=== PATIENT | male | born 1955 | race Caucasian/White ===

== ENCOUNTER → 2016-06-28 | Outpatient (CLI) | payer BC, OTHER ==
[~2016-06-28] MED LIST: /THIA10TA; ACET500C; AMLO5TAB2 PO; ASPI325T; ATEN25TA; ATOR1TAB18 PO; BAYE325T12 PO; CALC500C16 PO; CARV12.5 PO; CENT1TAB PO; FAMO20TA PO; FISH1000; FOLI1TAB; FOLI1TAB2 PO; LIPI20TA PO; LIPI80TA; LISI40TAB PO; LISI5TAB; MULTIVIT; NITR4TASL SL; OMEP40CA2 PO; OXAZ10CA PO; POTA20TA4 PO; PRIL20CA; SUCR1TA PO; Thiamine Hcl PO; serax PO
[2016-06-28 10:18] LABS: ALBUMIN 3.8 GM/DL (3.2-5.2); ALBUMIN/GLOBULIN RATIO 0.93 (1.00-1.93); ALKALINE PHOSPHATASE 118 U/L (45-117); ALT/SGPT 83 U/L (12-78); ANION GAP 13 MEQ/L (8-16); AST/SGOT 110 U/L (15-37); BILIRUBIN,TOTAL 0.7 MG/DL (0.2-1.0); BLOOD UREA NITROGEN 11 MG/DL (7-18); CALCIUM LEVEL 8.3 MG/DL (8.8-10.2); CARBON DIOXIDE LEVEL 24 MEQ/L (21-32); CHLORIDE LEVEL 103 MEQ/L (98-107); CHOLESTEROL LEVEL 205 MG/DL (<200); CREATININE FOR GFR 0.82 MG/DL (0.70-1.30); GLOMERULAR FILTRATION RATE > 60.0 (>49); GLUCOSE, FASTING 90 MG/DL (80-110); POTASSIUM SERUM 4.2 MEQ/L (3.5-5.1); SODIUM LEVEL 140 MEQ/L (136-145); TOTAL PROTEIN 7.9 GM/DL (6.4-8.2); TRIGLYCERIDES LEVEL 65 MG/DL (<150)
== END ==
LOC: M LAB 07:24
PROVIDERS: ATTEND Physician Assistant
DX: E78.00 Pure hypercholesterolemia, unspecified (principal); I25.10 Atherosclerotic heart disease of native coronary artery without angina pectoris; I25.5 Ischemic cardiomyopathy

== ENCOUNTER → 2016-08-06 | Outpatient (CLI) | payer BC, OTHER ==
[2016-08-06 07:50] LABS: ALBUMIN 3.5 GM/DL (3.2-5.2); ALBUMIN/GLOBULIN RATIO 0.85 (1.00-1.93); ALKALINE PHOSPHATASE 167 U/L (45-117); ALT/SGPT 123 U/L (12-78); ANION GAP 12 MEQ/L (8-16); AST/SGOT 155 U/L (15-37); BILIRUBIN,TOTAL 0.5 MG/DL (0.2-1.0); BLOOD UREA NITROGEN 10 MG/DL (7-18); CALCIUM LEVEL 8.6 MG/DL (8.8-10.2); CARBON DIOXIDE LEVEL 32 MEQ/L (21-32); CHLORIDE LEVEL 88 MEQ/L (98-107); CREATININE FOR GFR 0.95 MG/DL (0.70-1.30); GLOMERULAR FILTRATION RATE > 60.0 (>49); GLUCOSE, FASTING 119 MG/DL (80-110); MAGNESIUM LEVEL 1.9 MG/DL (1.8-2.4); POTASSIUM SERUM 3.3 MEQ/L (3.5-5.1); SODIUM LEVEL 132 MEQ/L (136-145); TOTAL PROTEIN 7.6 GM/DL (6.4-8.2)
== END ==
LOC: M LAB 06:46
PROVIDERS: ATTEND Physician Assistant
DX: I25.5 Ischemic cardiomyopathy (principal); E78.00 Pure hypercholesterolemia, unspecified

== ENCOUNTER → 2016-09-21 | Outpatient (CLI) | payer BC, OTHER ==
[2016-09-21 08:02] LABS: ALBUMIN 3.7 GM/DL (3.2-5.2); ALBUMIN/GLOBULIN RATIO 0.86 (1.00-1.93); ALKALINE PHOSPHATASE 122 U/L (45-117); ALT/SGPT 63 U/L (12-78); ANION GAP 7 MEQ/L (8-16); AST/SGOT 78 U/L (15-37); BILIRUBIN,TOTAL 0.7 MG/DL (0.2-1.0); BLOOD UREA NITROGEN 8 MG/DL (7-18); CALCIUM LEVEL 8.5 MG/DL (8.8-10.2); CARBON DIOXIDE LEVEL 29 MEQ/L (21-32); CHLORIDE LEVEL 98 MEQ/L (98-107); CREATININE FOR GFR 0.85 MG/DL (0.70-1.30); GLOMERULAR FILTRATION RATE > 60.0 (>49); GLUCOSE, FASTING 111 MG/DL (80-110); MAGNESIUM LEVEL 1.6 MG/DL (1.8-2.4); POTASSIUM SERUM 4.4 MEQ/L (3.5-5.1); SODIUM LEVEL 134 MEQ/L (136-145)
== END ==
LOC: M LAB 07:09
PROVIDERS: ATTEND Physician Assistant
DX: I25.5 Ischemic cardiomyopathy (principal); E78.00 Pure hypercholesterolemia, unspecified

== ENCOUNTER → 2017-02-23 | Outpatient (CLI) | payer BC, OTHER ==
[~2017-02-23] MED LIST changes: -ATOR1TAB18 PO; +ATOR80TA59 PO; -FOLI1TAB2 PO; +FOLI1TAB4 PO; -OXAZ10CA PO; +OXAZ10CA3 PO
[2017-02-23 14:13] LABS: BASO # 0.1 K/mm3 (0.0-0.2); BASO % 1.1 % (0.0-1.0); EOS # 0.3 K/mm3 (0.0-0.50); EOS % 4.3 % (0.0-3.0); LARGE UNSTAINED CELL # 0.2 K/mm3 (0.0-0.4); LARGE UNSTAINED CELL % 2.4 % (0.0-4.0); LYMPH # 1.6 K/mm3 (1.5-4.5); MEAN CORPUSCULAR HEMOGLOBIN 34.6 pg (27.0-33.0); MEAN CORPUSCULAR HGB CONC 34.3 g/dl (32.0-36.5); MONO # 0.4 K/mm3 (0.0-0.8); MONO % 5.8 % (0.0-5.0); NEUTROPHILS # 3.7 K/mm3 (1.8-7.7); NEUTROPHILS % 60.4 % (36.0-66.0); PLATELET COUNT, AUTOMATED 195 k/mm3 (150-450); RED CELL DISTRIBUTION WIDTH 12.1 % (11.5-14.5); WHITE BLOOD COUNT 6.1 K/mm3 (4.0-10.0)
[2017-02-23 15:47] LABS: ALBUMIN 3.4 GM/DL (3.2-5.2); ALBUMIN/GLOBULIN RATIO 0.83 (1.00-1.93); ALKALINE PHOSPHATASE 100 U/L (45-117); ALT/SGPT 32 U/L (12-78); ANION GAP 8 MEQ/L (8-16); AST/SGOT 39 U/L (15-37); BILIRUBIN,TOTAL 0.8 MG/DL (0.2-1.0); BLOOD UREA NITROGEN 15 MG/DL (7-18); CALCIUM LEVEL 8.9 MG/DL (8.8-10.2); CARBON DIOXIDE LEVEL 27 MEQ/L (21-32); CHLORIDE LEVEL 104 MEQ/L (98-107); CHOLESTEROL LEVEL 185 MG/DL (<200); CREATININE FOR GFR 0.78 MG/DL (0.70-1.30); GLOMERULAR FILTRATION RATE > 60.0 (>49); GLUCOSE, FASTING 96 MG/DL (80-110); POTASSIUM SERUM 4.1 MEQ/L (3.5-5.1); SODIUM LEVEL 139 MEQ/L (136-145); TOTAL PROTEIN 7.5 GM/DL (6.4-8.2); TRIGLYCERIDES LEVEL 82 MG/DL (<150)
[2017-02-24 14:25] LABS: PSA TOTAL 0.7 ng/mL (0.0-4.0)
== END ==
LOC: M LAB 13:23
PROVIDERS: ATTEND Nurse Practitioner Family
DX: I11.9 Hypertensive heart disease without heart failure (principal); Z12.5 Encounter for screening for malignant neoplasm of prostate; E56.9 Vitamin deficiency, unspecified; E78.5 Hyperlipidemia, unspecified

== ENCOUNTER → 2018-01-12 | Outpatient (CLI) | payer BC, OTHER | LOC: M RAD 13:48 | DX: M25.521 Pain in right elbow (principal) | CPT/HCPCS: 76882 ==

== ENCOUNTER → 2018-12-14 | Outpatient (CLI) | payer MEDICARE, OTHER ==
[~2018-12-14] MED LIST changes: -AMLO5TAB2 PO; +AMLO5TAB6 PO; +FOLI1TAB11 PO; -FOLI1TAB4 PO; +LISI40TA52 PO; -LISI40TAB PO
[2018-12-14 08:03] LABS: BLOOD UREA NITROGEN 22 MG/DL (7-18); CALCIUM LEVEL 8.3 MG/DL (8.8-10.2); CARBON DIOXIDE LEVEL 24 MEQ/L (21-32); CHLORIDE LEVEL 107 MEQ/L (98-107); CREATININE FOR GFR 1.06 MG/DL (0.70-1.30); GLOMERULAR FILTRATION RATE > 60.0 (>49); GLUCOSE, FASTING 118 MG/DL (70-100); MAGNESIUM LEVEL 2.1 MG/DL (1.8-2.4); POTASSIUM SERUM 4.2 MEQ/L (3.5-5.1); SODIUM LEVEL 139 MEQ/L (136-145)
== END ==
LOC: M LAB 07:12
PROVIDERS: ATTEND Physician Assistant
DX: I25.5 Ischemic cardiomyopathy (principal)

== ENCOUNTER → 2019-11-12 | Outpatient (CLI) | payer MEDICARE, BC, OTHER ==
[~2019-11-12] MED LIST changes: -OMEP40CA2 PO; +OMEP40CA97 PO
--- NOTE | 2019-11-12 21:31 | REP ---
Upper GI air contrast The procedure was performed under the direct supervision of Dr. Dawn. The images were reviewed with Dr. Dawn The chemist organic film shows no organomegaly or pathological masses. The intestinal gas pattern is non-specific. Liquid barium and gas producing crystals were given in the erect position as well as liquid barium in the prone oblique position in order to perform a double contrast upper GI examination. The oral and pharyngeal stages of deglutition are unremarkable. Esophageal transport is prompt and efficient and there is no esophagitis, stricture, mucosal ring or hiatal hernia. There is gastroesophageal reflux demonstrated to the level of the thoracic inlet. The stomach kaur are normally outlined . The rugal folds are smooth and regular. There is no gastritis neoplasm or ulcer disease. The duodenal kaur are normally outlined . The mucosal folds are smooth and regular. There is no duodenitis pancreatitis peptic ulcer disease or neoplasm. The visualized portion of the proximal small bowel appears normal in course and caliber. Impression: There is gastroesophageal reflux demonstrated to the level of the thoracic inlet. Otherwise, unremarkable double contrast upper GI examination. 1 minute of fluoro time was utilized for this procedure. Electronically Signed by JERICHO Hester 11/12/2019 03:59 P Electronically Signed by Tc Dawn MD 11/12/2019 09:23 P
== END ==
LOC: M LAB 12:43
PROVIDERS: ATTEND Physician Assistant Medical
DX: J02.9 Acute pharyngitis, unspecified (principal); R13.10 Dysphagia, unspecified; K21.9 Gastro-esophageal reflux disease without esophagitis

== ENCOUNTER 2020-10-05 15:04 | Emergency (ER) | payer MEDICARE, BC, OTHER ==
[~2020-10-05] VITALS: Ht 177.8 cm; Wt 86.4 kg
[~2020-10-05 15:04] MED LIST changes: +AMLO1TAB24 PO; -AMLO5TAB6 PO
[2020-10-05] MEDS ORDERED: ASPIRIN 81 MG CHEW TABLET PO ONE (15:40)
[2020-10-05] MEDS ORDERED: GI COCKTAIL 50ML BTL(HYOSCYAMINE/MAALOX/LIDOCAINE VISCOUS)(1:3:1) PO ONE ×2 (15:40→21:45)
[2020-10-05 16:11] LABS: BASO # 0.1 10^3/uL (0.0-0.2); BASO % 0.6 % (0.0-1.0); EOS # 0.1 10^3/uL (0.0-0.5); EOS % 1.6 % (0.0-3.0); HEMATOCRIT 44.7 % (42.0-52.0); HEMOGLOBIN 15.1 g/dl (13.5-17.5); LYMPH # 2.1 10^3/uL (1.5-5.0); LYMPH % 25.1 % (24.0-44.0); MEAN CORPUSCULAR HEMOGLOBIN 29.2 pg (27.0-33.0); MEAN CORPUSCULAR HGB CONC 33.8 g/dl (32.0-36.5); MEAN CORPUSCULAR VOLUME 86.5 fl (80.0-96.0); MONO # 0.7 10^3/uL (0.0-0.8); MONO % 7.9 % (2.0-8.0); NEUTROPHILS # 5.4 10^3/uL (1.5-8.5); NEUTROPHILS % 64.4 % (36.0-66.0); PLATELET COUNT, AUTOMATED 174 10^3/uL (150-450); RED BLOOD COUNT 5.17 10^6/uL (4.30-6.10); WHITE BLOOD COUNT 8.4 10^3/uL (4.0-10.0)
[2020-10-05] MEDS ORDERED: ISOVUE-370 76% 100ML VIAL As Ordered ONE (16:29)
[2020-10-05 16:33] LABS: ALBUMIN 4.2 GM/DL (3.2-5.2); BILIRUBIN,DIRECT 0.1 MG/DL (0.0-0.2); BILIRUBIN,TOTAL 0.5 MG/DL (0.2-1.0); FREE T4 1.03 NG/DL (0.76-1.46); INR 0.97; PROTHROMBIN TIME 13.1 SECONDS (12.5-14.3); THYROID STIMULATING HORMONE 1.55 uIU/ML (0.358-3.740); TOTAL PROTEIN 7.7 GM/DL (6.4-8.2)
[2020-10-05 16:34] LABS: PARTIAL THROMBOPLASTIN TIME 39.5 SECONDS (24.2-38.5)
--- NOTE | 2020-10-05 16:46 | REP ---
INDICATION: CHEST PAIN COMPARISON: 01/22/2016 TECHNIQUE: Portable AP view of the chest FINDINGS: The mediastinum and cardiac silhouette are stable and within normal limits for portable technique. The lung marie demonstrate stable chronic interstitial changes without acute consolidation, effusion, or pneumothorax. Skeletal structures are intact. IMPRESSION: Chronic stable changes. No focal consolidation or effusion appreciated. <Electronically signed by Lux Zaidi > 10/05/20 [id number]
--- NOTE | 2020-10-05 16:50 | REP ---
INDICATION: chest/midepig pain; hx esoph and gastric perf COMPARISON: 03/21/2014 TECHNIQUE: Axial contrast enhanced images from the thoracic inlet to the upper abdomen using pulmonary embolus technique with multiplanar re-formations. 100 ml Isovue 370 intravenous contrast material administered without complication. This CT examination was performed using the following dose reduction techniques: Automated exposure control, adjustment of mA and/or kv according to the patient's size, and use of iterative reconstruction technique. FINDINGS: Satisfactory enhancement of the pulmonary vasculature is achieved and no filling defects are identified to suggest pulmonary embolus. The lung marie demonstrate minimal posterior basilar dependent changes and chronic pleuroparenchymal changes along the anterior margin of the left upper lobe/lingula. No acute consolidation. No effusion. No pneumothorax. Tracheobronchial tree is patent. Mediastinum demonstrates atherosclerotic changes to the thoracic aorta and coronary arteries without aortic aneurysm. No pericardial effusion. 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 Surrounding musculoskeletal structures are intact. IMPRESSION: No evidence for pulmonary embolus. No acute mediastinal or pleural parenchymal process. Chronic stable changes as compared with 03/21/2014. <Electronically signed by Lux Zaidi > 10/05/20 [id number]
--- NOTE | 2020-10-05 16:54 | REP ---
INDICATION: chest/midepig pain; hx esoph and gastric perf. COMPARISON: 08/24/2015 TECHNIQUE: Axial contrast-enhanced images from the lung bases to the pubic symphysis using 100 cc Isovue 370 intravenous contrast material. Coronal and sagittal reformations obtained. This CT examination was performed using the following dose reduction techniques: Automated exposure control, adjustment of mA and/or kv according to the patient's size, and the use of iterative reconstruction technique. FINDINGS: Liver demonstrates fatty infiltration without focal hepatic lesion. Spleen, pancreas, gallbladder, bilateral adrenal glands and kidneys are essentially normal. The enteric system is without acute obstruction or inflammatory process. Moderate fecal stasis noted. Scattered sigmoid diverticula identified without acute diverticulitis.. Pelvis demonstrates normal bladder and age-appropriate prostate/seminal vesicles. No ascites. No free air. No intraperitoneal or retroperitoneal adenopathy. Abdominal aorta and vasculature appear normal. Musculoskeletal structures are intact and without acute osseous abnormality. IMPRESSION: No acute abdominopelvic pathology appreciated. Hepatosteatosis. Sigmoid diverticula without acute diverticulitis. <Electronically signed by Lux Zaidi > 10/05/20 [id number]
[2020-10-05] MEDS ORDERED: PROTPAK PO (18:54)
[2020-10-05] MEDS ORDERED: CARA1TAB6 PO (18:55)
--- NOTE | 2020-10-05 19:49 | ECGEPIP ---
[facility] - ED Test Date: 2020-10-05 Pat Name: ROSE MARY PRESSLEY Department: Room: - Gender: Male Security Analyst: TYREE : 1955 Requested By: Kendrick Jones Order Number: [id number] Reading MD: Kendrick Jones Measurements Intervals [place] Rate: 89 P: 45 [place]: 198 QRS: -28 QRSD: 98 T: 136 QT: 348 QTc: 423 Interpretive Statements Normal sinus rhythm Anteroseptal infarct , age undetermined ST & T wave abnormality, consider lateral ischemia LEFT VENTRICULAR HYPERTROPHY and ST-T change cw 01/22/16 - rate increased lateral st t wave changes - rule out ischemia CLINICAL CORRELATION ADVISED Electronically Signed on 10-05-2020 19:49:09 EDT by Kendrick Jones
[2020-10-05 21:30] VITALS: BP 124/79
--- NOTE | 2020-10-06 06:18 | ECGEPIP ---
[facility] - ED Test Date: 2020-10-05 Pat Name: ROSE MARY PRESSLEY Department: Room: - Gender: Male Chemical Research Engineer: CHRISTIAN : 1955 Requested By: Kendrick Jones Order Number: [id number] Reading MD: Kendrick Jones Measurements Intervals [place] Rate: 73 P: 27 [place]: 200 QRS: -29 QRSD: 98 T: 97 QT: 392 QTc: 431 Interpretive Statements Normal sinus rhythm Anteroseptal infarct , age undetermined ST T wave abnormality, consider lateral ischemia LAD LEFT VENTRICULAR HYPERTROPHY and ST-T change cw 10/05/[address] T wave changes similar morpholoy Electronically Signed on 10-06-2020 6:18:24 EDT by Kendrick Jones
== END 2020-10-05 21:59 | disposition home or self-care (01) ==
LOC: M ED 15:04
DX: R07.9 Chest pain, unspecified (principal); K29.70 Gastritis, unspecified, without bleeding; I25.10 Atherosclerotic heart disease of native coronary artery without angina pectoris; I25.2 Old myocardial infarction; I10 Essential (primary) hypertension; E78.5 Hyperlipidemia, unspecified; Z98.61 Coronary angioplasty status; Z95.810 Presence of automatic (implantable) cardiac defibrillator; Z87.891 Personal history of nicotine dependence; Z82.49 Family history of ischemic heart disease and other diseases of the circulatory system; Z79.899 Other long term (current) drug therapy; Z88.1 Allergy status to other antibiotic agents
CPT/HCPCS: 71045; 71275; 74177; 80047; 80076; 83690; 83880; 84439; 84443; 84484; 85025; 85610; 85730; 93005; 93041; 94760; 99285; Q9967

== ENCOUNTER → 2021-03-05 | Outpatient (CLI) | payer MEDICARE, BC, OTHER ==
[~2021-03-05] MED LIST changes: +CARA1TAB6 PO; +OMEP40CA4 PO; -OMEP40CA97 PO; +PROTPAK PO
--- NOTE | 2021-03-05 09:17 | REP ---
INDICATION: AAA SCREENING COMPARISON: None. TECHNIQUE: Multiple ultrasonographic images of the abdominal aorta were obtained from the level of the celiac access to the aortoiliac bifurcation and the longitudinal and transverse scan planes along with color Doppler imaging. FINDINGS: The maximal AP dimension of the abdominal aorta as measured in the longitudinal scan plane is 2.4 cm. There is no evidence of common iliac arterial ectasia. IMPRESSION: No evidence of abdominal aortic aneurysm. <Electronically signed by Андрей Mims > 03/05/21 [id number]
== END ==
LOC: M RAD 07:36
PROVIDERS: ATTEND Internal Medicine
DX: Z13.6 Encounter for screening for cardiovascular disorders (principal); F17.201 Nicotine dependence, unspecified, in remission

== ENCOUNTER → 2021-07-03 | Outpatient (CLI) | payer MEDICARE, BC, OTHER ==
[~2021-07-03] MED LIST changes: +ASPI81TA26 PO; +ENTR1TAB PO; +METO1TAB7 PO; +ROSU20TA5 PO
== END ==
LOC: M LABSMTC 09:17
PROVIDERS: ATTEND Anesthesiology
DX: Z01.812 Encounter for preprocedural laboratory examination (principal); Z20.822 Contact with and (suspected) exposure to COVID-19

== ENCOUNTER 2021-07-08 08:38 | Day surgery (SDC) | payer MEDICARE, BC, OTHER ==
[~2021-07-08] VITALS: Ht 177.8 cm; Wt 83.0 kg
[~2021-07-08 08:38] MED LIST changes: +NS 1,000 ML IV SCH
[2021-07-08] MEDS ORDERED: LIDOCAINE 2% 100MG/5ML SDV (FOR ANES.) As Ordered ONE (08:55)
[2021-07-08] MEDS ORDERED: propofoL 500 MG/50 ML VIAL As Ordered ONE (08:56)
[2021-07-08] MEDS ORDERED: fentaNYL 100 MCG/2 ML INJECTION As Ordered ONE (08:56)
[2021-07-08] MEDS ORDERED: ePHEDrine SULFATE 25 MG/5 ML(5MG/ML) SYRINGE As Ordered ONE (10:10)
[2021-07-08] MEDS ORDERED: PHENYLephrine 500MCG 5ML (100MCG/ML) SYRINGE As Ordered ONE (10:17)
[2021-07-08 10:55] VITALS: BP 113/64
== END 2021-07-08 11:01 | disposition home or self-care (01) ==
LOC: M OPP 08:38
PROVIDERS: ATTEND Internal Medicine Gastroenterology
DX: Z12.11 Encounter for screening for malignant neoplasm of colon (principal); D12.6 Benign neoplasm of colon, unspecified; K63.3 Ulcer of intestine; K57.30 Diverticulosis of large intestine without perforation or abscess without bleeding; K64.0 First degree hemorrhoids; K29.60 Other gastritis without bleeding; K20.90 Esophagitis, unspecified without bleeding; K44.9 Diaphragmatic hernia without obstruction or gangrene; I50.9 Heart failure, unspecified; Z79.82 Long term (current) use of aspirin; Z79.899 Other long term (current) drug therapy; Z87.891 Personal history of nicotine dependence
CPT/HCPCS: 43239; 45380; 45385; 88305; J2370; J3010

== ENCOUNTER 2021-07-15 20:20 | Emergency (ER) | payer MEDICARE, BC, OTHER ==
[~2021-07-15] VITALS: Ht 177.8 cm; Wt 83.2 kg
[~2021-07-15 20:20] MED LIST changes: -NS 1,000 ML IV SCH
[2021-07-15 21:23] LABS: BASO # 0.1 10^3/uL (0.0-0.2); BASO % 0.4 % (0.0-1.0); EOS # 0.2 10^3/uL (0.0-0.5); EOS % 1.7 % (0.0-3.0); HEMATOCRIT 43.1 % (42.0-52.0); HEMOGLOBIN 14.6 g/dl (13.5-17.5); LYMPH # 1.8 10^3/uL (1.5-5.0); LYMPH % 14.7 % (24.0-44.0); MEAN CORPUSCULAR HEMOGLOBIN 29.4 pg (27.0-33.0); MEAN CORPUSCULAR HGB CONC 33.9 g/dl (32.0-36.5); MEAN CORPUSCULAR VOLUME 86.9 fl (80.0-96.0); MONO # 0.9 10^3/uL (0.0-0.8); MONO % 7.8 % (2.0-8.0); NEUTROPHILS % 75.1 % (36.0-66.0); PLATELET COUNT, AUTOMATED 167 10^3/uL (150-450); RED BLOOD COUNT 4.96 10^6/uL (4.30-6.10); WHITE BLOOD COUNT 11.9 10^3/uL (4.0-10.0)
[2021-07-15 21:56] LABS: CK-MB VALUE MASS 1.4 NG/ML (<3.6); MB/CK RELATIVE INDEX 1.73 (< OR =4)
[2021-07-15 21:58] LABS: ALBUMIN 3.8 GM/DL (3.2-5.2); BILIRUBIN,TOTAL 0.5 MG/DL (0.2-1.0); CALCIUM LEVEL 8.6 MG/DL (8.8-10.2); CREATININE FOR GFR 1.36 MG/DL (0.70-1.30); GLOMERULAR FILTRATION RATE 55.6 (>49); POTASSIUM SERUM 4.6 MEQ/L (3.5-5.1); TOTAL PROTEIN 7.6 GM/DL (6.4-8.2)
[2021-07-15] MEDS ORDERED: NS 1,000 ML IV ONE (23:10)
[2021-07-16 01:00] VITALS: BP 120/68
== END 2021-07-16 01:11 | disposition home or self-care (01) ==
LOC: M ED 20:20
DX: K52.9 Noninfective gastroenteritis and colitis, unspecified (principal); R55 Syncope and collapse; I44.0 Atrioventricular block, first degree; I45.19 Other right bundle-branch block; I25.2 Old myocardial infarction; I10 Essential (primary) hypertension; K21.9 Gastro-esophageal reflux disease without esophagitis; E78.5 Hyperlipidemia, unspecified; Z95.1 Presence of aortocoronary bypass graft; Z95.0 Presence of cardiac pacemaker; Z95.810 Presence of automatic (implantable) cardiac defibrillator; Z79.82 Long term (current) use of aspirin; Z79.899 Other long term (current) drug therapy; Z91.040 Latex allergy status

== ENCOUNTER 2023-01-30 10:27 | Inpatient (IN) | payer MEDICARE, BC, OTHER ==
[~2023-01-30] VITALS: Ht 177.8 cm; Wt 80.0 kg
[~2023-01-30 10:27] MED LIST changes: -ROSU20TA5 PO; +ROSU20TA61 PO
[2023-01-30] MEDS ORDERED: METO200T28 PO (11:08)
[2023-01-30] MEDS ORDERED: NS 1,000 ML IV ONE (11:25)
[2023-01-30 11:29] LABS: VENOUS BASE EXCESS -3.3 (-2.0-2.0); VENOUS HCO3 22.9 MMOL/L (23.0-27.0); VENOUS O2 SATURATION 46.9 % (60.0-80.0); VENOUS PARTIAL PRESSURE CO2 45.3 mmHg (38.0-50.0); VENOUS PH 7.321 UNITS (7.330-7.430); VENOUS STANDARD HCO3 20.7 MMOL/L; VENOUS TOTAL CO2 24.3 MMOL/L (24.0-28.0)
[2023-01-30 11:35] LABS: BASO % 0.3 % (0.0-1.0); EOS # 0.1 10^3/uL (0.0-0.5); LYMPH % 15.9 % (24.0-44.0); MEAN CORPUSCULAR HGB CONC 32.4 g/dl (32.0-36.5); MEAN CORPUSCULAR VOLUME 89.4 fl (80.0-96.0); MONO # 0.5 10^3/uL (0.0-0.8); MONO % 8.8 % (2.0-8.0); NEUTROPHILS # 4.5 10^3/uL (1.5-8.5); NEUTROPHILS % 73.8 % (36.0-66.0); PLATELET COUNT, AUTOMATED 111 10^3/uL (150-450); RED BLOOD COUNT 4.14 10^6/uL (4.30-6.10)
[2023-01-30 11:44] LABS: INR 1.09; PROTHROMBIN TIME 13.8 SECONDS (12.5-14.5)
[2023-01-30 11:54] LABS: ETHYL ALCOHOL (ETHANOL) < 0.003 % (0.000-0.010)
[2023-01-30] MEDS ORDERED: ACETAMINOPHEN TAB 650MG DOSE (2X325MG) PO ONE (11:55)
[2023-01-30 11:56] LABS: BLOOD UREA NITROGEN 18 MG/DL (9-23); CALCIUM LEVEL 7.5 MG/DL (8.3-10.6); CARBON DIOXIDE LEVEL 24 MMOL/L (20-31); CHLORIDE LEVEL 107 MMOL/L (98-107); CK-MB VALUE MASS < 1.0 NG/ML (<3.6); CPK CREATINE PHOSPHOKINASE 48 U/L (46-171); CREATININE FOR GFR 1.15 MG/DL (0.70-1.30); GLOMERULAR FILTRATION RATE > 60.0 (>49); GLUCOSE, FASTING 116 MG/DL (74-106); MAGNESIUM LEVEL 1.5 MG/DL (1.8-2.4); MB/CK RELATIVE INDEX 2.08 (< OR =4); POTASSIUM SERUM 4.1 MMOL/L (3.5-5.1); SODIUM LEVEL 139 MMOL/L (136-145)
[2023-01-30 11:58] LABS: THYROID STIMULATING HORMONE 2.088 uIU/ML (0.55-4.78)
[2023-01-30 11:59] LABS: FREE T4 1.13 NG/DL (0.89-1.76)
[2023-01-30 12:01] LABS: RSV AMPLIFICATION NEGATIVE (NEGATIVE)
[2023-01-30 12:32] LABS: CK-MB VALUE MASS < 1.0 NG/ML (<3.6)
[2023-01-30 12:46] LABS: PROCALCITONIN 0.07 ng/ml
[2023-01-30 12:48] LABS: CPK CREATINE PHOSPHOKINASE 46 U/L (46-171); MB/CK RELATIVE INDEX 2.17 (< OR =4)
[2023-01-30] MEDS ORDERED: MED REC IN PROGRESS XX SCH (14:00)
[2023-01-30] MEDS ORDERED: MELA3TAB70 PO (14:23)
[2023-01-30] MEDS ORDERED: CORICAP PO (14:23)
[2023-01-30] MEDS ORDERED: LEXA1TAB PO (14:23)
[2023-01-30] MEDS ORDERED: HOME MED LIST COMPLETE! XX SCH (14:35)
[2023-01-30] MEDS ORDERED: NITROGLYCERIN 0.4MG SUBL TABLET SL PRN (14:35)
[2023-01-30] MEDS ORDERED: METO1TAB7 PO (14:57)
[2023-01-30] MEDS ORDERED: PROT1TAB2 PO (14:57)
[2023-01-30] MEDS ORDERED: REMDESIVIR 200 MG in NS 250 ML IV ONE (17:00)
[2023-01-30] MEDS: COMBIVENT RESPIMAT 100-20MCG INHALER 4GM INH SCH ×2 (18:01→19:42)
[2023-01-30 20:40] VITALS: BP 142/79; TEMP 98.3; O2SAT 91
[2023-01-30] MEDS: ENOXAPARIN 40MG/0.4ML SYRINGE (J1650 PER 10MG) SC SCH (21:50)
[2023-01-30] MEDS: ENTRESTO 24-26MG TABLET (SACUBITRIL/VALSARTAN) PO SCH (21:50)
[2023-01-30] MEDS: guaiFENesin ER 600 MG TAB PO SCH (21:51)
[2023-01-30] MEDS: ROSUVASTATIN 10 MG TAB (CRESTOR) PO SCH (21:51)
[2023-01-30] MEDS: SUCRALFATE 1 GM TAB PO SCH (21:56)
[2023-01-30] MEDS ORDERED: RAMELTEON 8 MG TAB (ROZEREM) PO PRN (22:55)
[2023-01-30] MEDS: ACETAMINOPHEN TAB 650MG DOSE (2X325MG) PO PRN (23:35)
[2023-01-31] MEDS: COMBIVENT RESPIMAT 100-20MCG INHALER 4GM INH SCH ×7 (00:47→23:48)
[2023-01-31 05:21] VITALS: BP 100/62; TEMP 98.2; O2SAT 92
[2023-01-31 05:23] VITALS: BP_SYST 100; BP_SYST 78; BP_SYST 94; BP_DIAS 49; BP_DIAS 60; BP_DIAS 62
[2023-01-31 06:27] LABS: BASO % 0.4 % (0.0-1.0); EOS % 0.4 % (0.0-3.0); HEMATOCRIT 35.4 % (42.0-52.0); HEMOGLOBIN 11.7 g/dl (13.5-17.5); LYMPH # 1.5 10^3/uL (1.5-5.0); LYMPH % 30.2 % (24.0-44.0); MEAN CORPUSCULAR HEMOGLOBIN 29.1 pg (27.0-33.0); MEAN CORPUSCULAR HGB CONC 33.1 g/dl (32.0-36.5); MEAN CORPUSCULAR VOLUME 88.1 fl (80.0-96.0); MONO # 0.5 10^3/uL (0.0-0.8); MONO % 9.8 % (2.0-8.0); NEUTROPHILS # 2.9 10^3/uL (1.5-8.5); NEUTROPHILS % 58.8 % (36.0-66.0); PLATELET COUNT, AUTOMATED 114 10^3/uL (150-450); RED BLOOD COUNT 4.02 10^6/uL (4.30-6.10); WHITE BLOOD COUNT 4.9 10^3/uL (4.0-10.0)
[2023-01-31 06:38] LABS: LDH LACTATE DEHYDROGENASE 147 U/L (120-246)
[2023-01-31 06:39] LABS: ALBUMIN 2.8 G/DL (3.2-5.2); ALKALINE PHOSPHATASE 56 U/L (46-116); ALT/SGPT 16 U/L (7.0-40); AST/SGOT 17 U/L (<34); BILIRUBIN,DIRECT 0.2 MG/DL (<0.4); BILIRUBIN,TOTAL 0.3 MG/DL (0.3-1.2); BLOOD UREA NITROGEN 15 MG/DL (9-23); CALCIUM LEVEL 7.5 MG/DL (8.3-10.6); CARBON DIOXIDE LEVEL 21 MMOL/L (20-31); CHLORIDE LEVEL 108 MMOL/L (98-107); CREATININE FOR GFR 0.99 MG/DL (0.70-1.30); GLOMERULAR FILTRATION RATE > 60.0 (>49); GLUCOSE, FASTING 92 MG/DL (74-106); MAGNESIUM LEVEL 1.5 MG/DL (1.8-2.4); POTASSIUM SERUM 3.9 MMOL/L (3.5-5.1); SODIUM LEVEL 137 MMOL/L (136-145); TOTAL PROTEIN 5.6 G/DL (5.7-8.2)
[2023-01-31 06:40] LABS: INR 1.21
[2023-01-31 06:41] LABS: FERRITIN 217.6 NG/ML (10.5-307.3)
[2023-01-31 06:41] LABS: PARTIAL THROMBOPLASTIN TIME 43.4 SECONDS (24.8-34.2)
[2023-01-31 06:44] LABS: D-DIMER QUANT 0.44 ug/mL (<0.5); ERYTHROCYTE SEDIMENTATION RATE 13 mm/hr (0-20)
[2023-01-31 07:20] VITALS: O2SAT 97
[2023-01-31] MEDS ORDERED: METOPROLOL SUCC *XL* 25MG TAB (TopROL *XL*) PO SCH (09:00)
[2023-01-31] MEDS: ENTRESTO 24-26MG TABLET (SACUBITRIL/VALSARTAN) PO SCH ×2 (09:12→21:00)
[2023-01-31] MEDS: ASPIRIN 81MG ENTERIC TABLET PO SCH (09:13)
[2023-01-31] MEDS: ESCITALOPRAM OXALATE 10 MG TAB (LEXAPRO) PO SCH (09:13)
[2023-01-31] MEDS: guaiFENesin ER 600 MG TAB PO SCH ×2 (09:14→21:51)
[2023-01-31] MEDS: SUCRALFATE 1 GM TAB PO SCH ×3 (09:14→17:19)
[2023-01-31 14:00] VITALS: BP 106/60; TEMP 97.7; O2SAT 96
[2023-01-31] MEDS: REMDESIVIR 100 MG in NS 250 ML IV SCH (17:19)
[2023-01-31 20:31] VITALS: BP 121/63; TEMP 97.7; O2SAT 96
[2023-01-31 21:45] VITALS: BP_SYST 113; BP_SYST 115; BP_SYST 120; BP_DIAS 59; BP_DIAS 64
[2023-01-31] MEDS: ROSUVASTATIN 10 MG TAB (CRESTOR) PO SCH (21:51)
[2023-01-31] MEDS: MULTIVITAMINS/MINERALS THERAP 1 TAB PO SCH (21:51)
[2023-01-31] MEDS: ENOXAPARIN 40MG/0.4ML SYRINGE (J1650 PER 10MG) SC SCH (21:52)
[2023-01-31] MEDS: CARVedilol 3.125 MG TAB PO SCH (21:52)
[2023-02-01] MEDS: COMBIVENT RESPIMAT 100-20MCG INHALER 4GM INH SCH ×6 (02:08→23:37)
[2023-02-01 05:06] VITALS: BP 119/69; TEMP 97.7; O2SAT 94
[2023-02-01] MEDS: ACETAMINOPHEN TAB 650MG DOSE (2X325MG) PO PRN (05:36)
[2023-02-01 05:39] VITALS: BP_SYST 100; BP_SYST 119; BP_DIAS 57; BP_DIAS 58; BP_DIAS 62
[2023-02-01 06:01] LABS: BASO % 0.4 % (0.0-1.0); EOS # 0.1 10^3/uL (0.0-0.5); EOS % 1.4 % (0.0-3.0); HEMATOCRIT 37.3 % (42.0-52.0); HEMOGLOBIN 12.7 g/dl (13.5-17.5); LYMPH # 1.7 10^3/uL (1.5-5.0); LYMPH % 32.5 % (24.0-44.0); MEAN CORPUSCULAR HEMOGLOBIN 29.4 pg (27.0-33.0); MEAN CORPUSCULAR VOLUME 86.3 fl (80.0-96.0); MONO # 0.4 10^3/uL (0.0-0.8); MONO % 7.5 % (2.0-8.0); NEUTROPHILS % 57.8 % (36.0-66.0); PLATELET COUNT, AUTOMATED 116 10^3/uL (150-450); RED BLOOD COUNT 4.32 10^6/uL (4.30-6.10); WHITE BLOOD COUNT 5.1 10^3/uL (4.0-10.0)
[2023-02-01 06:38] LABS: BLOOD UREA NITROGEN 16 MG/DL (9-23); CALCIUM LEVEL 8.1 MG/DL (8.3-10.6); CARBON DIOXIDE LEVEL 20 MMOL/L (20-31); CHLORIDE LEVEL 105 MMOL/L (98-107); CREATININE FOR GFR 0.83 MG/DL (0.70-1.30); GLOMERULAR FILTRATION RATE > 60.0 (>49); GLUCOSE, FASTING 94 MG/DL (74-106); MAGNESIUM LEVEL 1.6 MG/DL (1.8-2.4); POTASSIUM SERUM 3.8 MMOL/L (3.5-5.1); SODIUM LEVEL 137 MMOL/L (136-145)
[2023-02-01] MEDS ORDERED: MAGNESIUM OXIDE 400MG TAB (MAG-OX) PO ONE (09:00)
[2023-02-01] MEDS: CARVedilol 3.125 MG TAB PO SCH ×2 (09:00→20:58)
[2023-02-01] MEDS: ENTRESTO 24-26MG TABLET (SACUBITRIL/VALSARTAN) PO SCH ×2 (09:00→20:59)
[2023-02-01] MEDS: ASPIRIN 81MG ENTERIC TABLET PO SCH (09:22)
[2023-02-01] MEDS: ESCITALOPRAM OXALATE 10 MG TAB (LEXAPRO) PO SCH (09:22)
[2023-02-01] MEDS: guaiFENesin ER 600 MG TAB PO SCH ×2 (09:22→20:57)
[2023-02-01] MEDS: SUCRALFATE 1 GM TAB PO SCH ×3 (09:22→17:44)
[2023-02-01] MEDS: REMDESIVIR 100 MG in NS 250 ML IV SCH (12:07)
[2023-02-01 20:00] VITALS: BP 127/71; TEMP 98.2; O2SAT 94
[2023-02-01 20:45] VITALS: BP_SYST 104; BP_SYST 118; BP_SYST 119; BP_DIAS 68; BP_DIAS 69; BP_DIAS 73
[2023-02-01] MEDS: ROSUVASTATIN 10 MG TAB (CRESTOR) PO SCH (20:57)
[2023-02-01] MEDS: MULTIVITAMINS/MINERALS THERAP 1 TAB PO SCH (20:57)
[2023-02-01] MEDS: ENOXAPARIN 40MG/0.4ML SYRINGE (J1650 PER 10MG) SC SCH (20:57)
[2023-02-02] VITALS (7 sets, daily range): BP systolic 104–136; BP diastolic 65–76; TEMP 97.7–98.1; O2SAT 96–98
[2023-02-02] MEDS: COMBIVENT RESPIMAT 100-20MCG INHALER 4GM INH SCH ×5 (03:51→20:19)
[2023-02-02] MEDS: ACETAMINOPHEN TAB 650MG DOSE (2X325MG) PO PRN (04:19)
[2023-02-02 06:19] LABS: BASO % 0.4 % (0.0-1.0); EOS # 0.1 10^3/uL (0.0-0.5); EOS % 2.3 % (0.0-3.0); HEMATOCRIT 36.8 % (42.0-52.0); HEMOGLOBIN 12.5 g/dl (13.5-17.5); LYMPH # 1.5 10^3/uL (1.5-5.0); LYMPH % 26.8 % (24.0-44.0); MEAN CORPUSCULAR HEMOGLOBIN 29.3 pg (27.0-33.0); MEAN CORPUSCULAR VOLUME 86.2 fl (80.0-96.0); MONO # 0.4 10^3/uL (0.0-0.8); MONO % 7.2 % (2.0-8.0); NEUTROPHILS # 3.6 10^3/uL (1.5-8.5); NEUTROPHILS % 63.1 % (36.0-66.0); PLATELET COUNT, AUTOMATED 115 10^3/uL (150-450); RED BLOOD COUNT 4.27 10^6/uL (4.30-6.10); WHITE BLOOD COUNT 5.7 10^3/uL (4.0-10.0)
[2023-02-02 06:41] LABS: BLOOD UREA NITROGEN 16 MG/DL (9-23); CALCIUM LEVEL 7.8 MG/DL (8.3-10.6); CARBON DIOXIDE LEVEL 21 MMOL/L (20-31); CHLORIDE LEVEL 105 MMOL/L (98-107); CREATININE FOR GFR 0.94 MG/DL (0.70-1.30); GLOMERULAR FILTRATION RATE > 60.0 (>49); GLUCOSE, FASTING 92 MG/DL (74-106); MAGNESIUM LEVEL 1.8 MG/DL (1.8-2.4); POTASSIUM SERUM 3.8 MMOL/L (3.5-5.1); SODIUM LEVEL 137 MMOL/L (136-145)
[2023-02-02] MEDS: SUCRALFATE 1 GM TAB PO SCH ×3 (08:36→17:55)
[2023-02-02] MEDS: ESCITALOPRAM OXALATE 10 MG TAB (LEXAPRO) PO SCH (08:36)
[2023-02-02] MEDS: ASPIRIN 81MG ENTERIC TABLET PO SCH (08:36)
[2023-02-02] MEDS: guaiFENesin ER 600 MG TAB PO SCH ×2 (08:36→21:30)
[2023-02-02] MEDS: CARVedilol 3.125 MG TAB PO SCH ×2 (08:40→21:27)
[2023-02-02] MEDS: ENTRESTO 24-26MG TABLET (SACUBITRIL/VALSARTAN) PO SCH ×2 (08:40→21:31)
[2023-02-02] MEDS: REMDESIVIR 100 MG in NS 250 ML IV SCH (12:45)
[2023-02-02] MEDS ORDERED: RAMELTEON 8 MG TAB (ROZEREM) PO SCH (21:00)
[2023-02-02] MEDS: ROSUVASTATIN 10 MG TAB (CRESTOR) PO SCH (21:26)
[2023-02-02] MEDS: MULTIVITAMINS/MINERALS THERAP 1 TAB PO SCH (21:30)
[2023-02-02] MEDS: ENOXAPARIN 40MG/0.4ML SYRINGE (J1650 PER 10MG) SC SCH (21:31)
[2023-02-03] MEDS: COMBIVENT RESPIMAT 100-20MCG INHALER 4GM INH SCH ×3 (00:29→13:10)
[2023-02-03] MEDS: ACETAMINOPHEN TAB 650MG DOSE (2X325MG) PO PRN (04:07)
[2023-02-03 06:12] LABS: BASO % 0.3 % (0.0-1.0); EOS # 0.1 10^3/uL (0.0-0.5); EOS % 2.4 % (0.0-3.0); HEMATOCRIT 36.9 % (42.0-52.0); HEMOGLOBIN 12.5 g/dl (13.5-17.5); LYMPH # 1.5 10^3/uL (1.5-5.0); LYMPH % 24.6 % (24.0-44.0); MEAN CORPUSCULAR HEMOGLOBIN 29.2 pg (27.0-33.0); MEAN CORPUSCULAR HGB CONC 33.9 g/dl (32.0-36.5); MEAN CORPUSCULAR VOLUME 86.2 fl (80.0-96.0); MONO # 0.5 10^3/uL (0.0-0.8); MONO % 8.8 % (2.0-8.0); NEUTROPHILS # 3.8 10^3/uL (1.5-8.5); NEUTROPHILS % 63.6 % (36.0-66.0); PLATELET COUNT, AUTOMATED 129 10^3/uL (150-450); RED BLOOD COUNT 4.28 10^6/uL (4.30-6.10); WHITE BLOOD COUNT 5.9 10^3/uL (4.0-10.0)
[2023-02-03 06:19] VITALS: BP 111/63; TEMP 98.1; O2SAT 97
[2023-02-03 06:34] LABS: BLOOD UREA NITROGEN 16 MG/DL (9-23); CALCIUM LEVEL 7.9 MG/DL (8.3-10.6); CARBON DIOXIDE LEVEL 23 MMOL/L (20-31); CHLORIDE LEVEL 105 MMOL/L (98-107); CREATININE FOR GFR 0.91 MG/DL (0.70-1.30); GLOMERULAR FILTRATION RATE > 60.0 (>49); GLUCOSE, FASTING 101 MG/DL (74-106); MAGNESIUM LEVEL 1.8 MG/DL (1.8-2.4); POTASSIUM SERUM 3.9 MMOL/L (3.5-5.1); SODIUM LEVEL 137 MMOL/L (136-145)
[2023-02-03] MEDS: guaiFENesin ER 600 MG TAB PO SCH (08:33)
[2023-02-03] MEDS: ENTRESTO 24-26MG TABLET (SACUBITRIL/VALSARTAN) PO SCH (08:33)
[2023-02-03] MEDS: SUCRALFATE 1 GM TAB PO SCH ×2 (08:33→11:28)
[2023-02-03] MEDS: ASPIRIN 81MG ENTERIC TABLET PO SCH (08:33)
[2023-02-03] MEDS: ESCITALOPRAM OXALATE 10 MG TAB (LEXAPRO) PO SCH (08:33)
[2023-02-03 08:34] VITALS: BP 109/64
[2023-02-03] MEDS: CARVedilol 3.125 MG TAB PO SCH (08:34)
[2023-02-03] MEDS: REMDESIVIR 100 MG in NS 250 ML IV SCH (11:28)
== END 2023-02-03 14:22 | disposition home or self-care (01) | DRG 178 ==
LOC: EDBD 10:27 → M ED 10:27 → M ED INP 14:09 → M MSPAV 20:37
PROVIDERS: ADMIT General Practice; ATTEND Student in an Organized Health Care Education/Training Program
PROC: XW033E5 Introduction of Remdesivir Anti-infective into Peripheral Vein, Percutaneous Approach, New Technology Group 5 (ICD-10-PCS; principal; 2023-01-30)
PROC: B246ZZZ Ultrasonography of Right and Left Heart (ICD-10-PCS; 2023-01-31)
DX: U07.1 COVID-19 (principal); I50.32 Chronic diastolic (congestive) heart failure; I25.10 Atherosclerotic heart disease of native coronary artery without angina pectoris; I25.2 Old myocardial infarction; E78.5 Hyperlipidemia, unspecified; I11.0 Hypertensive heart disease with heart failure; I25.5 Ischemic cardiomyopathy; F41.9 Anxiety disorder, unspecified; F32.A Depression, unspecified; M16.0 Bilateral primary osteoarthritis of hip; I95.1 Orthostatic hypotension; T46.905A Adverse effect of unspecified agents primarily affecting the cardiovascular system, initial encounter; Z85.828 Personal history of other malignant neoplasm of skin; Z95.5 Presence of coronary angioplasty implant and graft; Z95.810 Presence of automatic (implantable) cardiac defibrillator; Z87.891 Personal history of nicotine dependence; Z79.82 Long term (current) use of aspirin; Z79.899 Other long term (current) drug therapy; Z91.040 Latex allergy status; Z79.83 Long term (current) use of bisphosphonates

== ENCOUNTER → 2025-04-15 | Outpatient (CLI) | payer MEDICARE, BC, OTHER ==
[~2025-04-15] MED LIST changes: -BAYE325T12 PO; +BAYE325T2 PO; +CORICAP PO; +LEXA1TAB PO; +MELA3TAB70 PO; +METO200T15 PO; +PROT1TAB2 PO; -ROSU20TA61 PO; +ROSU20TA86 PO
== END ==
LOC: M PLAIMG 09:03
PROVIDERS: ATTEND Physician Assistant
DX: Q23.1 Congenital insufficiency of aortic valve (principal); I25.5 Ischemic cardiomyopathy